=== PATIENT | female | born 1950 | race Caucasian/White ===

== ENCOUNTER 2018-06-11 14:34 | Outpatient (CLI) | payer OTHER, MEDICARE | END 2018-06-11 14:35 | disposition critical access hospital (66) | LOC: EMS 14:34 | PROVIDERS: ATTEND Surgery | DX: M54.5 Low back pain (principal); V89.2XXA Person injured in unspecified motor-vehicle accident, traffic, initial encounter; Y92.413 State road as the place of occurrence of the external cause | CPT/HCPCS: A0425; A0427 ==

== ENCOUNTER 2018-06-11 14:42 | Emergency (ER) | payer OTHER, MEDICARE ==
[2018-06-11] MEDS ORDERED: ONDANSETRON 4 MG/2 ML VIAL IVP STA (15:05)
[2018-06-11] MEDS ORDERED: MORPHINE 2 MG/ML CARPUJECT IVP STA (15:05)
[2018-06-11 15:12] LABS: BASOPHILS # (AUTO) 0.2 10^3/uL (0.0-0.1); BASOPHILS % (AUTO) 2.5 %; EOSINOPHILS # (AUTO) 0.3 10^3/uL (0.0-0.7); EOSINOPHILS % (AUTO) 4.2 %; HGB - HEMOGLOBIN 13.1 g/dL (12.0-16.0); LYMPHOCYTES # (AUTO) 2.9 10^3/uL (1.5-3.5); MEAN CORPUSCULAR HEMOGLOBIN 30.3 pg (27.0-31.0); MEAN CORPUSCULAR HGB CONC 34.1 g/dL (32.0-36.0); MEAN CORPUSCULAR VOLUME 88.8 fL (81.0-99.0); MEAN PLATELET VOLUME 8.1 fL (7.9-10.8); MONOCYTES # (AUTO) 0.6 10^3/uL (0.0-1.0); MONOCYTES % (AUTO) 7.9 %; NEUTROPHILS # (AUTO) 3.4 10^3/uL (1.5-6.6); NEUTROPHILS % (AUTO) 46.4 %; PLT - PLATELET COUNT 419 10^3/uL (130-450); RED BLOOD COUNT 4.32 10^6/uL (4.20-5.40); RED CELL DISTRIBUTION WIDTH 12.7 % (12.0-15.0); WHITE BLOOD COUNT 7.4 x10^3/uL (4.8-10.8)
[2018-06-11 15:22] LABS: ALBUMIN 4.4 g/dL (3.2-5.5); ALBUMIN/GLOBULIN RATIO 1.6 (1.0-2.2); BILIRUBIN,TOTAL 0.7 mg/dL (0.2-1.0); CALCIUM 9.4 mg/dL (8.5-10.3); CREATININE 0.6 mg/dL (0.4-1.0); TOTAL PROTEIN 7.1 g/dL (6.7-8.2)
[2018-06-11] MEDS ORDERED: IOVERSOL 320 100 ML VIAL IVP ONE ×2 (15:35→16:37)
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
[2018-06-11] MEDS ORDERED: oxyCODONE 5 MG TABLET PO STA ×2 (17:03→18:33)
[2018-06-11] MEDS ORDERED: LIDOCAINE PATCH 5% TOP STA (17:03)
[2018-06-11 18:14] VITALS: BP 128/71
[2018-06-11 18:25] LABS: BILIRUBIN,URINE NEGATIVE (NEGATIVE); GLUCOSE, URINE (UA) NEGATIVE (NEGATIVE); KETONES,URINE (UA) NEGATIVE (NEGATIVE); LEUKOCYTE ESTERASE, URINE NEGATIVE (NEGATIVE); NITRITE,URINE NEGATIVE (NEGATIVE); OCCULT BLOOD,URINE NEGATIVE (NEGATIVE); PH,URINE 8.5 PH (5.0-7.5); PROTEIN,URINE NEGATIVE (NEGATIVE); UROBILINOGEN,URINE 0.2 (NORMAL) E.U./dL (NORMAL)
[2018-06-11 18:32] LABS: CLARITY,URINE CLEAR (CLEAR)
[2018-06-11] MEDS ORDERED: CYCLOBENZAPRINE 10 MG TABLET PO STA (18:33)
== END 2018-06-11 19:15 | disposition home or self-care (01) ==
LOC: EDUNIT# → ED 14:42
DX: S39.012A Strain of muscle, fascia and tendon of lower back, initial encounter (principal); R20.0 Anesthesia of skin; M54.2 Cervicalgia; R07.9 Chest pain, unspecified; R10.9 Unspecified abdominal pain; R51 Headache; R40.2412 Glasgow coma scale score 13-15, at arrival to emergency department; V43.52XA Car driver injured in collision with other type car in traffic accident, initial encounter
CPT/HCPCS: 36415; 70450; 71275; 72125; 74177; 80053; 81003; 83690; 84484; 85025; 93005; 96374; 96375; 99284; A9270; Q9967; 81001; 87086

== ENCOUNTER 2018-06-13 17:54 | Emergency (ER) | payer OTHER, MEDICARE ==
[2018-06-13 18:05] VITALS: BP 109/48
[2018-06-13] MEDS ORDERED: NAPROXEN 250 MG TABLET PO STA (18:53)
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
== END 2018-06-13 19:02 | disposition home or self-care (01) ==
LOC: ED 17:54 → UNDOADMIN 18:35 → MS2 18:35 → ED 19:02
DX: S03.40XA Sprain of jaw, unspecified side, initial encounter (principal); V49.9XXA Car occupant (driver) (passenger) injured in unspecified traffic accident, initial encounter; F17.200 Nicotine dependence, unspecified, uncomplicated
CPT/HCPCS: 99283; A9270

== ENCOUNTER 2019-01-31 13:49 | Outpatient (CLI) | payer MEDICARE ==
--- NOTE | 2019-02-01 08:34 | Mammography Report ---
Reason: ROUTINE MAMMO Procedure Date: 01/31/2019 Accession Number: [id number] / [id number] Procedure: [facility] - Screening Mammo w/Louis CPT Code: FULL RESULT: EXAM: Screening Mammo w/Louis DATE: 01/31/2019 2:16 PM CLINICAL HISTORY: Screening encounter. History of late childbearing. New baseline examination. TECHNIQUE: (B) - Bilateral CC and MLO views were obtained. COMPARISON: None PARENCHYMAL PATTERN: (D) - The breast(s) demonstrate(s) heterogeneously dense fibroglandular parenchyma. FINDINGS: There are typically benign vascular and typically benign coarse calcifications. There are no suspicious masses, calcifications, or areas of distortion. IMPRESSION: Benign findings. BI-RADS category 2. RECOMMENDATION: (ANNUAL) - Recommend routine annual screening mammography. BI-RADS CATEGORY: (2) - Benign Findings. STANDARD QUALIFYING STATEMENTS: 1. This examination was not reviewed with the aid of Computer-Aided Detection (CAD). 2. A negative or benign imaging report should not preclude biopsy if clinically suspicious findings are present. 3. Dense breasts may obscure an underlying neoplasm. 4. This examination was reviewed with the aid of 3D breast imaging (tomosynthesis).
== END 2019-01-31 13:50 | disposition home or self-care (01) ==
LOC: DI 13:49
PROVIDERS: ATTEND Internal Medicine
DX: Z12.31 Encounter for screening mammogram for malignant neoplasm of breast (principal)
CPT/HCPCS: 77063; 77067

== ENCOUNTER 2019-03-27 11:07 | Day surgery (SDC) | payer MEDICARE ==
[2019-03-27] MEDS ORDERED: LACTATED RINGERS 1,000 ML IV ONE (11:12)
[2019-03-27] MEDS ORDERED: LACTATED RINGERS 500 ML IV ONE (13:00)
[2019-03-27 13:49] VITALS: BP 119/66
== END 2019-03-27 11:08 | disposition home or self-care (01) ==
LOC: SDS 11:07
PROVIDERS: ATTEND Surgery
PROC: 0DJD8ZZ Inspection of Lower Intestinal Tract, Via Natural or Artificial Opening Endoscopic (ICD-10-PCS; principal; 2019-03-27 12:15)
DX: Z12.11 Encounter for screening for malignant neoplasm of colon (principal); K57.30 Diverticulosis of large intestine without perforation or abscess without bleeding; K64.8 Other hemorrhoids; Z87.891 Personal history of nicotine dependence
CPT/HCPCS: G0121; J7120

== ENCOUNTER 2019-06-28 16:28 | Outpatient (CLI) | payer MEDICARE ==
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
== END 2019-06-28 16:29 | disposition home or self-care (01) ==
LOC: DI 16:28
PROVIDERS: ATTEND Internal Medicine
DX: R26.89 Other abnormalities of gait and mobility (principal); R29.6 Repeated falls
CPT/HCPCS: 70450

== ENCOUNTER 2019-07-04 17:07 | Outpatient (CLI) | payer MEDICARE ==
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
== END 2019-07-04 17:08 | disposition home or self-care (01) ==
LOC: DI 17:07
PROVIDERS: ATTEND Internal Medicine
DX: M17.11 Unilateral primary osteoarthritis, right knee (principal); M85.861 Other specified disorders of bone density and structure, right lower leg

== ENCOUNTER 2019-11-14 13:26 | Outpatient (CLI) | payer MEDICARE ==
--- NOTE | 2019-11-14 14:29 | Ultrasound Report ---
Reason: RT LEG PAIN Procedure Date: 11/14/2019 Accession Number: [id number] / [id number] Procedure: US - Duplex Ext Veins Right CPT Code: Final Report FULL RESULT: PROCEDURE: Duplex Ext Veins Right INDICATIONS: RT LEG PAIN TECHNIQUE: Real-time imaging, as well as color and pulse Doppler interrogation, were performed of the lower extremity deep veins from the inguinal ligament to the popliteal fossa. COMPARISON: None. FINDINGS: The deep veins are normally compressible, and free of intraluminal thrombus. Color and pulse Doppler demonstrate normal phasic intraluminal flow. There is normal augmentation response to distal compression maneuver. IMPRESSION: Negative exam. No right lower extremity DVT. Exam results were conveyed to the ordering provider's shortly after completion of the exam by the vp purchasing. Reviewed by: Tyree Miller MD on 11/14/2019 2:27 PM PDT Approved by: Tyree Miller MD on 11/14/2019 2:27 PM PDT Station ID: [id number]
== END 2019-11-14 13:27 | disposition home or self-care (01) ==
LOC: DI 13:26
PROVIDERS: ATTEND Internal Medicine
DX: M79.604 Pain in right leg (principal)

== ENCOUNTER 2022-11-27 23:58 | Emergency (ER) | payer MEDICARE ==
[2022-11-28] MEDS ORDERED: ONDANSETRON 4 MG/2 ML VIAL IVP STA (00:17)
[2022-11-28] MEDS ORDERED: MORPHINE 2 MG/ML CARPUJECT IVP STA (00:17)
[2022-11-28] MEDS ORDERED: PROPOFOL 200 MG/20 ML VIAL IVP STA (00:18)
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
[2022-11-28] MEDS ORDERED: SODIUM CHLORIDE 0.9% 1,000 ML IV STA (00:55)
--- NOTE | 2022-11-28 01:47 | XRAY Report ---
PROCEDURE: Shoulder 3 View RT INDICATIONS: post reduction TECHNIQUE: 3 views of the shoulder were acquired. COMPARISON: X-ray shoulder 11/28/2022 FINDINGS: Bones: There is been interval reduction of previous anterior dislocation. There is good anatomic ali gnment. No visualized fracture.. No suspicious bony lesions. Visualized ribs appear intact. Soft tissues: No suspicious soft tissue calcifications. IMPRESSION: Anatomic alignment status post reduction. No visualized acute fracture. However, occult injury cannot be excluded. Recommend short interval imaging follow-up in 7-10 days as clinically indicated for add itional evaluation. Reviewed by: Nadine Aguirre MD on 11/28/2022 1:46 AM PDT Approved by: Nadine Aguirre MD on 11/28/2022 1:46 AM PDT Station ID: [id number]
[2022-11-28] MEDS ORDERED: HYDROcod/ACET 5/325 Prepack 4 PO STA (02:00)
--- NOTE | 2022-11-28 02:03 | ED Physician Documentation ---
PD HPI UPPER EXT INJURY - Stated complaint Stated Complaint: GLF - Chief complaint Chief Complaint: Ext Problem - History obtained from History obtained from: Patient, Family (Patient's son) - Additonal information Additional information: Patient is a 72-year-old female presenting for evaluation of right shoulder pain. Patient states that they are moving from her house and she tripped over a rug and fell with her arm out in front of her and it feels that her arm is out of place. She did not hit her head. She does not take a blood thinner. She denies any issue with anesthesia in the past. Her last meal was around 1:00. Per the son he states that she did have some alcohol this evening - Approximately 3 shots.Patient denies pain or injury elsewhere. Review of Systems Constitutional: denies: Fever Cardiac: denies: Chest pain / pressure Respiratory: denies: Dyspnea GI: denies: Abdominal Pain Musculoskeletal: reports: Extremity pain PD PAST MEDICAL HISTORY - Past Medical History Cardiovascular: None Respiratory: None Endocrine/Autoimmune: None GI: Hiatal hernia, Chronic constipation, Other : None HEENT: None Psych: Anxiety Musculoskeletal: None Derm: None - Past Surgical History Past Surgical History: Yes General: Hiatal hernia repair Ortho: Other /[employer] C[employer]: Hysterectomy - Present Medications Home Medications: Ambulatory Orders Medication Instructions Recorded Confirmed Cyclobenzaprine [Flexeril] 10 mg PO TID PRN #20 tablet 06/11/18 03/26/19 Naproxen 500 mg PO BID #20 tablet 06/13/18 03/27/19 HYDROcod/ACETAM 5/325 [Benoit 5/325] 1 tablet PO Q6H PRN #14 tablet 11/28/22 - Allergies Allergies/Adverse Reactions: Allergies Allergy/AdvReac Type Severity Reaction Status Date / Time diazepam [From Valium] Allergy Nausea Verified 03/27/19 11:19 - Social History Does the pt smoke?: Yes Smoking Status: Current every day smoker Does the pt drink ETOH?: Yes Does the pt have substance abuse?: No - Immunizations Immunizations are current?: Yes - POLST Patient has POLST: No PD ED PE NORMAL - General General: Alert and oriented X 3, No acute distress, Well developed/nourished - HEENT HEENT: Atraumatic, PERRL, EOMI, Moist mucous membranes, Pharynx benign - Neck Neck: Supple, no meningeal sign, No bony TTP, C-Spine cleared by NEXUS criteria - Cardiac Cardiac: RRR, Strong equal pulses - Respiratory Respiratory: No respiratory distress, Clear bilaterally - Abdomen Abdomen: Soft, Non tender - Derm Derm: Warm and dry - Extremities Extremities: Other (Deformity and tenderness to right shoulder, motor, sensation intact distally, strong radial pulse, full range of motion at right elbow) - Neuro Neuro: Alert and oriented X 3, No motor deficit, No sensory deficit, Normal speech Results - Vitals Vitals: Vital Signs - 24 hr 11/28/22 11/28/22 11/28/22 00:03 00:36 00:59 Temperature 36.5 C Heart Rate 84 76 95 Respiratory 22 21 20 Rate Blood Pressure 119/59 L 117/60 149/63 H O2 Saturation 99 100 100 If not protocol : Oxygen Flow, liters/minute 11/28/22 11/28/22 11/28/22 01:14 01:18 01:30 Temperature Heart Rate 86 78 78 Respiratory 20 15 18 Rate Blood Pressure 115/56 L 118/65 118/67 O2 Saturation 100 94 100 If not protocol 2 : Oxygen Flow, liters/minute 11/28/22 11/28/22 01:46 03:38 Temperature Heart Rate 75 79 Respiratory 17 15 Rate Blood Pressure 116/62 131/71 H O2 Saturation 100 95 If not protocol : Oxygen Flow, liters/minute Oxygen O2 Source Room air Procedures - Reduction Body part reduced: Right, Shoulder Fracture or dislocation: Dislocation Anesthesia: Other (Procedural sedation, propofol) Shoulder reduction technique: Traction - counter tract Reduction aftercare: Xray confirms reduction, Alignment improved, Sling, Patient tolerated well - Procedural sedation Sedation prep: Informed consent, Time out completed, Last meal (1 PM), PE performed, ASA 1 - healthy, IV O2 monitor, ET CO2 monitor, RT present Sedation Medications: propofol Mallampati classification: III Patient status during sedation: Drowsy, Vitals remained stable, Maintained airway, Recovered uneventfully Sedation recovery: Other (Required supplemental oxygen) Time in sedation (Minutes): 10 PD Medical Decision Making - ED course Complexity details: reviewed results, re-evaluated patient, d/w patient, d/w family ED course: Patient presenting for evaluation of right shoulder injury. Appears to have deformity on exam concerning for dislocation. No head injury. Does not take a blood thinner. X-ray which I reviewed demonstrates a anterior shoulder dislocation on the right. Patient was given IV morphine and consented for procedural sedation and reduction of her dislocation. She was given propofol and tolerated sedation as well as reduction. Reduction was confirmed as successful on repeat imaging. Patient did briefly require oxygen And was monitored in the emergency department until she was able to maintain room air sats. She returned to her preprocedural baseline. Son is present with her to give her a ride home. Patient is counseled on need for close follow-up with orthopedic surgery. She is advised on concerning symptoms to return for. Departure - Departure Disposition: Home, Self Care Clinical Impression: Dislocation of right shoulder joint Qualifiers: Encounter type: initial encounter Qualified Code(s): S43.004A - Unspecified dislocation of right shoulder joint, initial encounter Condition: Stable Instructions: ED Sedation Procedural Discon, ED Dislocation Shoulder Redu, ED Sling Prescriptions: HYDROcod/ACETAM 5/325 [Benoit 5/325] 1 tablet PO Q6H PRN #14 tablet PRN Reason: Pain Comments: Your right shoulder was dislocated and put back into place. We did give you a medicine called propofol to sedate you. Please do not drive yourself home. You also received pain medicine which could make you sleepy. We have placed your arm into a sling to help keep your shoulder in place. Please do not not do any reaching movements with your arm as this may cause your shoulder to come out of place again.I do recommend close follow-up with an orthopedic surgeon. [place] I would call Monday morning for a follow-up appointment. I have sent a prescription for pain medicine to [facility] in [place]. Return to the emergency department with any new or worsening symptoms. I am prescribing a short course of narcotic pain medication for you. These are potentially dangerous and addictive medications that should be used carefully. These medications may constipate you. Take an cdfd-grk-yiuiudv stool softener (docusate) twice daily with plenty of water while taking these medications. If you go 24 hours without a bowel movement, take krep-hsk-zzzzbra miralax, per package instructions. Do not drink or drive while taking these medications. If you received narcotic or sedating medications while in the emergency department, do not drive for 24 hours. Store this medication in a safe, secure place and out of reach of children. It is a violation of federal law to give or sell this medication to another person or to use in a manner other than prescribed. The ED will not refill narcotic prescriptions, including prescriptions lost or stolen. To dispose of unwanted medications: 1. [facility] [address] [facility] in [place] has a medication drop box. They accept prescription medications (in pill form) Monday through Monday 9:00 a.m. to 5:00 p.m. 2. The [facility] [employer] accepts prescription medications (in pill form only) for disposal year round. Call for more information. 3. Contact the [facility] for the next [facility] sponsored prescription drug collection event. , [phone], or [phone]; Note that many narcotic pain relievers also contain Tylenol/acetaminophen. Please ensure that your total dose of acetaminophen from all sources does not exceed 3 g (3000 mg) per day. Discharge Date/Time: 11/28/22 03:39
[2022-11-28 03:42] VITALS: BP 131/71
== END 2022-11-28 03:39 | disposition home or self-care (01) ==
LOC: ED 23:58
DX: S43.004A Unspecified dislocation of right shoulder joint, initial encounter (principal); W01.0XXA Fall on same level from slipping, tripping and stumbling without subsequent striking against object, initial encounter; F17.200 Nicotine dependence, unspecified, uncomplicated
CPT/HCPCS: 99152; 99283

== ENCOUNTER 2023-04-30 16:36 | Emergency (ER) | payer MEDICARE ==
[2023-04-30 16:47] VITALS: BP 146/82; O2SAT 100
[2023-04-30] MEDS ORDERED: LIDOCAINE-MPF 2% 5 ML VIAL SUBQ STA (16:47)
[2023-04-30] MEDS ORDERED: cephALEXin 250 MG CAPSULE PO STA (17:18)
--- NOTE | 2023-04-30 17:19 | XRAY Report ---
PROCEDURE: Finger(s) LT INDICATIONS: index finger distal amputation TECHNIQUE: AP hand, 2 views of the second finger(s) acquired. COMPARISON: None. FINDINGS: Bones: There has been amputation of the distal aspect of the distal phalanx of the second finger. No additional focal bony abnormality is seen. Age-appropriate degenerative changes are seen. Soft tissues: Associated soft tissue injury is seen. IMPRESSION: Amputation of the distal aspect of the distal phalanx of the second finger. Reviewed by: Noam Gunderson MD on 04/30/2023 4:18 PM [place] Approved by: Noam Gunderson MD on 04/30/2023 4:18 PM [facility] Station ID: [id number]
--- NOTE | 2023-04-30 17:22 | ED Physician Documentation ---
PD HPI UPPER EXT INJURY - Stated complaint Stated Complaint: LT HAND INJ - Chief complaint Chief Complaint: Trauma Ext - History obtained from History obtained from: Patient - History of Present Illness Location: Left, Finger (index) Type of injury: Crush Where injury occurred: Home Timing - onset: How many minutes ago (45) Pain level max: 6 Pain level now: 6 Improved by: Rest Worsened by: Moving, Palpating Associated symptoms: No: Weakness, Numbness, Tingling, Swelling Contributing factors: No: Anticoagulated Recently seen: Not recently seen - Additonal information Additional information: Patient is a 72-year-old female that was moving today, she is left-handed, and her left index finger became caught in between 2 objects. She states that the tip of her finger came off. Nothing makes it better or worse. Tetanus shot is up-to-date, last tetanus shot 2018. No numbness or tingling. Nothing makes it better or worse. Review of Systems Constitutional: denies: Fever, Chills GI: denies: Vomiting, Diarrhea PD PAST MEDICAL HISTORY - Past Medical History Past Medical History: Yes Cardiovascular: None Respiratory: None Endocrine/Autoimmune: None GI: Hiatal hernia, Chronic constipation, Other : None HEENT: None Psych: Anxiety Musculoskeletal: None Derm: None - Past Surgical History Past Surgical History: Yes General: Hiatal hernia repair Ortho: Other /[employer]: Hysterectomy - Present Medications Home Medications: Ambulatory Orders Medication Instructions Recorded Confirmed Cyclobenzaprine [Flexeril] 10 mg PO TID PRN #20 tablet 06/11/18 03/26/19 Naproxen 500 mg PO BID #20 tablet 06/13/18 03/27/19 HYDROcod/ACETAM 5/325 [[place] 5/325] 1 tablet PO Q6H PRN #14 tablet 11/28/22 HYDROcod/ACETAM 5/325 [[place] 5/325] 1 - 2 ea PO Q6H PRN #14 tablet 04/30/23 cephALEXin [Keflex] 500 mg PO Q6H #28 cap 04/30/23 - Allergies Allergies/Adverse Reactions: Allergies Allergy/AdvReac Type Severity Reaction Status Date / Time diazepam [From Valium] Allergy Nausea Verified 04/30/23 16:46 - Social History Does the pt smoke?: No Smoking Status: Never smoker Does the pt drink ETOH?: Yes Does the pt have substance abuse?: No - Immunizations Immunizations are current?: No - POLST Patient has POLST: No PD ED PE NORMAL - Vitals Vital signs reviewed: Yes - General General: Alert and oriented X 3, No acute distress - HEENT HEENT: Moist mucous membranes - Neck Neck: Supple, no meningeal sign - Cardiac Cardiac: RRR - Respiratory Respiratory: No respiratory distress, Clear bilaterally - Derm Derm: Warm and dry - Extremities Extremities: Other (L hand - Amputation at the distal tip. No visible exposed bone. Neurovascular intact. Nail was removed with the tip.) - Neuro Neuro: Alert and oriented X 3 - Psych Psych: Normal mood, Normal affect Results - Vitals Vitals: Vital Signs - 24 hr 04/30/23 16:41 Temperature 36.2 C L Heart Rate 104 H Respiratory 18 Rate Blood Pressure 146/82 H O2 Saturation 100 Oxygen O2 Source Room air - Rads (name of study) Left hand x-ray Relevant Findings:: Final report received, See rad report (Distal tip amputation left index finger) Procedures - Laceration (location) Left index finger Length in cm: 3 Wound type: Curved, Clean, Exposure of bone Neurovascular status: Sensory intact, Motor intact, Vascular intact Tendon involvement: Tendon intact Anesthesia: Lidocaine 1% (Digital block) Wound preparation: Irrigated copiously NS, Wound explored, To the base Skin layer closure: Nylon, Interrupted, Size #-0 - enter number (4) Other: Patient tolerated well, No complications, Neurovascular intact, Dressing applied, Tetanus UTD PD Medical Decision Making - ED course Complexity details: reviewed results, re-evaluated patient, considered differential, d/w patient ED course: Patient is a 72-year-old female with a left distal fingertip amputation. She did bring the tip of the finger with her. This was irrigated copiously with normal saline. I spoke with orthopedics on-call, Dr. Alonso. We discussed treatment options Including reattaching the tip versus rongeuring any potential exposed bone and oversewing the flap. The patient would like to try having the tip reattached to see if this will readhere. She understands that this may necrose and fall off. She also understands that this could need revision of the bone underneath the finger depending on how she is healing, but for now with the tip was reattached as a biological dressing and for possible readherence. The nail was fully ripped off from the patient's finger at the time of the initial injury. We will place her on Keflex and pain medication for home. Xeroform was applied after suturing the tip of the finger back in place. Gauze was then placed over the area and then a foam finger splint was used to cover the area to protect the tip of the finger. She will follow-up with orthopedics this week for a wound check. Warnings of infection and instructions on wound care given at bedside. Patient counseled regarding signs and symptoms for which I believe and urgent re-evaluation would be necessary. Patient with good understanding of and agreement to plan and is comfortable going home at this time This document was made in part using voice recognition software. While efforts are made to proofread this document, sound alike and grammatical errors may occur. Departure - Departure Disposition: 01 Home, Self Care Clinical Impression: Fingertip amputation Qualifiers: Encounter type: initial encounter Qualified Code(s): S68.119A - Complete traumatic metacarpophalangeal amputation of unspecified finger, initial encounter Condition: Good Instructions: ED Laceration Amputation Finger Tip Open Tx Follow-Up: [facility] [Provider Group] - Within 1 week Prescriptions: cephALEXin [Keflex] 500 mg PO Q6H #28 cap HYDROcod/ACETAM 5/325 [S[place]aton 5/325] 1 - 2 ea PO Q6H PRN #14 tablet PRN Reason: Pain Comments: I spoke with Dr. Alonso from orthopedics [facility]. Your fingertip was reapproximated and placed back onto the fingertip. As we discussed, this may re-adhere and heal well, there is also a chance that it may not re-adhere in which case it will turn black and fall off. It is important to follow-up with orthopedics to ensure proper wound healing, that there is no infection and that no further treatment is needed. Your prescriptions were sent to [facility] in [place]. Take all antibiotics until gone even if you are feeling better. Wear the splint until released by orthopedics. Do not change the yellow Xeroform gauze. You can change the outer gauze if it becomes soiled. I am prescribing a short course of narcotic pain medication for you. These are potentially dangerous and addictive medications that should be used carefully. These medications may constipate you. Take an qinu-zbq-pwcwnyb stool softener (docusate) twice daily with plenty of water while taking these medications. If you go 24 hours without a bowel movement, take saox-xir-fmpndxe miralax, per package instructions. Do not drink or drive while taking these medications. If you received narcotic or sedating medications while in the emergency dep artment, do not drive for 24 hours. Store this medication in a safe, secure place and out of reach of children. It is a violation of federal law to give or sell this medication to another person or to use in a manner other than prescribed. The ED will not refill narcotic prescriptions, including prescriptions lost or stolen. To dispose of unwanted medications: 1. [facility] at [address] in [place] has a medication drop box. They accept prescription medications (in pill form) Monday through Monday 9:00 a.m. to 5:00 p.m. 2. The [facility] Police Department accepts prescription medications (in pill form only) for disposal year round. Call for more information. 3. Contact the [facility] for the next [facility] sponsored prescription drug collection event. , [phone], or [phone]; Forms: PCP List Discharge Date/Time: 04/30/23 18:11
[2023-04-30] MEDS ORDERED: HYDROcod/ACET 5/325 Prepack 4 PO STA (17:47)
== END 2023-04-30 18:11 | disposition home or self-care (01) ==
LOC: ED 16:36
DX: S68.111A Complete traumatic metacarpophalangeal amputation of left index finger, initial encounter (principal); W23.0XXA Caught, crushed, jammed, or pinched between moving objects, initial encounter; Y92.009 Unspecified place in unspecified non-institutional (private) residence as the place of occurrence of the external cause
CPT/HCPCS: 12002; 73140; 99283; 99284; A9270

== ENCOUNTER 2023-11-10 16:19 | Outpatient (CLI) | payer MEDICARE | END 2023-11-10 23:59 | disposition critical access hospital (66) | LOC: EMS 16:19 | DX: S01.81XA Laceration without foreign body of other part of head, initial encounter (principal); S60.410A Abrasion of right index finger, initial encounter; M25.521 Pain in right elbow; M25.561 Pain in right knee; M54.2 Cervicalgia; W01.0XXA Fall on same level from slipping, tripping and stumbling without subsequent striking against object, initial encounter; Y93.01 Activity, walking, marching and hiking; Y92.524 Gas station as the place of occurrence of the external cause | CPT/HCPCS: A0425; A0429 ==

== ENCOUNTER 2023-11-10 16:52 | Emergency (ER) | payer MEDICARE ==
--- NOTE | 2023-11-10 16:59 | ED Physician Documentation ---
PD HPI Fall - Stated complaint Stated Complaint: GLF - History obtained from History obtained from: Patient, EMS - Additional information Additional information: This is a medically healthy 73-year-old woman who is up-to-date on tetanus who tripped over a concrete curb and fell forward hitting her face on the ground. There is no loss of consciousness. She has a laceration on the forehead. She complains of severe headache. Also right elbow and knee pain. She is quite anxious and started crying when I recommended closure of her facial laceration. She is allergic to Valium with a side effect of vomiting but says she can take lorazepam and alprazolam. PD PAST MEDICAL HISTORY - Past Medical History Cardiovascular: None Respiratory: None Endocrine/Autoimmune: None GI: Hiatal hernia, Chronic constipation, Other : None HEENT: None Psych: Anxiety Musculoskeletal: None Derm: None - Past Surgical History Past Surgical History: Yes General: Hiatal hernia repair Ortho: Other /[employer]ODUCTION: Hysterectomy - Present Medications Home Medications: Ambulatory Orders Medication Instructions Recorded Confirmed Cyclobenzaprine [Flexeril] 10 mg PO TID PRN #20 tablet 06/11/18 03/26/19 Naproxen 500 mg PO BID #20 tablet 06/13/18 03/27/19 HYDROcod/ACETAM 5/325 [Vermilion 5/325] 1 tablet PO Q6H PRN #14 tablet 11/28/22 HYDROcod/ACETAM 5/325 [Vermilion 5/325] 1 - 2 ea PO Q6H PRN #14 tablet 04/30/23 cephALEXin [Keflex] 500 mg PO Q6H #28 cap 04/30/23 HYDROcod/ACETAM 5/325 [Vermilion 5/325] 1 - 2 tab PO Q6H PRN #10 tablet 11/10/23 - Allergies Allergies/Adverse Reactions: Allergies Allergy/AdvReac Type Severity Reaction Status Date / Time diazepam [From Valium] Allergy Nausea Verified 11/10/23 17:22 - Social History Does the pt smoke?: No Smoking Status: Never smoker Does the pt drink ETOH?: Yes Does the pt have substance abuse?: No - Immunizations Immunizations are current?: No - POLST Patient has POLST: No PD ED PE NORMAL - Vitals Vital signs reviewed: Yes - General General: Alert and oriented X 3, Other (Anxious and crying, in a c-collar maintained pending imaging for concern of distracting injury) - HEENT HEENT: PERRL, EOMI, Pharynx benign, Other (Small laceration on the forehead but with active arterial bleeding. There is ecchymosis and swelling in the left periorbital area with tenderness but no evidence of entrapment.) - Neck Neck: No bony TTP (C-collar maintained pending imaging given her anxiety level and possible distracting injury from head injury.) - Cardiac Cardiac: RRR, No murmur - Respiratory Respiratory: No respiratory distress, Clear bilaterally - Abdomen Abdomen: Normal bowel sounds, Soft, Non tender - Derm Derm: Normal color, Warm and dry - Extremities Extremities: Other (Tenderness to the lateral epicondyle of the right elbow with difficulty with range of motion due to pain but has full range of motion. 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, No motor deficit, No sensory deficit, Normal speech Eye Opening: Spontaneous Motor: Obeys Commands Verbal: Oriented GCS Score: 15 - Psych Psych: Normal mood, Normal affect Results - Vitals Vitals: Vital Signs - 24 hr 11/10/23 17:16 Temperature 36.4 C L Heart Rate 107 H Respiratory 18 Rate Blood Pressure 156/93 H O2 Saturation 99 Oxygen O2 Source Room air - Labs Labs: Laboratory Tests 11/10/23 11/10/23 11/10/23 17:04 17:04 17:04 WBC 9.6 RBC 4.01 L Hgb 12.1 Hct 36.6 L MCV 91.3 MCH 30.2 MCHC 33.1 RDW 11.7 L Plt Count 323 MPV 10.2 Neut # (Auto) 4.8 Lymph # (Auto) 3.3 Rains # (Auto) 0.9 Eos # (Auto) 0.4 Baso # (Auto) 0.2 H Absolute Nucleated RBC 0.00 Nucleated RBC % 0.0 PT 11.0 INR 1.0 Sodium 136 Potassium 3.5 Chloride 104 Carbon Dioxide 24 Anion Gap 8.0 BUN 19 Creatinine 0.7 Estimated GFR (MDRD) 82 L Glucose 125 H Calcium 9.4 Total Bilirubin 0.5 AST 22 ALT 19 Alkaline Phosphatase 48 Total Protein 6.0 L Albumin 4.3 Globulin 1.7 L Albumin/Globulin Ratio 2.5 H - Rads (name of study) CT of the head, face, cervical spine with a left periorbital hematoma, clear head and cervical spine with only spondylitic changes. Relevant Findings:: Final report received, EMP independent interpretation of test X-rays of the right knee and right elbow showing arthritic changes in the knee but no trauma. Relevant Findings:: Final report received, EMP independent interpretation of test Procedures - Laceration (location) forehead Length in cm: 1 Wound type: Linear Wound preparation: Irrigated copiously NS Skin layer closure: Dermabond Other: Tetanus UTD PD Medical Decision Making - ED course ED course: 73-year-old woman presents after ground-level fall with predominantly facial in juries, clinically low pretest probability of facial fracture. She had a small laceration on the forehead that was closed with Dermabond. Relevant imaging was negative for more severe trauma. She was administered a small dose of hydromorphone and lorazepam in the emergency department with improvement in her symptoms she was offered a work note but plans to keep working despite her injuries. CBC, INR and CMP unremarkable save mild hyperglycemia likely due to stress reaction. Departure - Departure Disposition: 01 Home, Self Care Clinical Impression: Facial laceration Qualifiers: Encounter type: initial encounter Qualified Code(s): S01.81XA - Laceration without foreign body of other part of head, initial encounter Facial contusion Qualifiers: Encounter type: initial encounter Qualified Code(s): S00.83XA - Contusion of other part of head, initial encounter Head injury Qualifiers: Encounter type: initial encounter Qualified Code(s): S09.90XA - Unspecified injury of head, initial encounter Contusion of right elbow Qualifiers: Encounter type: initial encounter Qualified Code(s): S50.01XA - Contusion of right elbow, initial encounter Contusion of right knee Qualifiers: Encounter type: initial encounter Qualified Code(s): S80.01XA - Contusion of right knee, initial encounter Condition: Good Record reviewed to determine appropriate education?: Yes Instructions: ED Head Injury Closed, ED Laceration Facial Skin Glue Prescriptions: HYDROcod/ACETAM 5/325 [Vermilion 5/325] 1 - 2 tab PO Q6H PRN #10 tablet PRN Reason: Pain Comments: I sent your prescription electronically to the [facility] in [place]. If pain is not bad or if you need to drive you can take Tylenol and/or ibuprofen. Follow-up with your doctor in a week for recheck. Return for new or worsening symptoms. I am prescribing a short course of narcotic pain medication for you. These are potentially dangerous and addictive medications that should be used carefully. These medications may constipate you. Take an lmqs-vcx-rmrepxe stool softener (docusate) twice daily with plenty of water while taking these medications. If you go 24 hours without a bowel movement, take qeih-cuu-dloiged miralax, per package instructions. Do not drink or drive while taking these medications. If you received narcotic or sedating medications while in the emergency department, do not drive for 24 hours. Store this medication in a safe, secure place and out of reach of children. It is a violation of federal law to give or sell this medication to another person or to use in a manner other than prescribed. The ED will not refill narcotic prescriptions, including prescriptions lost or stolen. To dispose of unwanted medications: 1. [facility] a [facility] box for medication in pill form only (no liquids) 8:00 am to 4:30 p.m. Monday-Monday in the lobby of the [facility], [address] [place] [address]. Empty pills into ziplock bag before disposal. Call [phone] for information. 2.[employer] is a free service available to all [facility] residents. Go to [email or web address] Note that many narcotic pain relievers also contain Tylenol/acetaminophen. Please ensure that your total dose of acetaminophen from all sources does not exceed 3 g (3000 mg) per day.
[2023-11-10 17:10] LABS: BASOPHILS # (AUTO) 0.2 10^3/uL (0.0-0.1); BASOPHILS % (AUTO) 1.6 %; EOSINOPHILS # (AUTO) 0.4 10^3/uL (0.0-0.7); EOSINOPHILS % (AUTO) 4.5 %; HCT - HEMATOCRIT 36.6 % (37.0-47.0); HGB - HEMOGLOBIN 12.1 g/dL (12.0-16.0); LYMPHOCYTES # (AUTO) 3.3 10^3/uL (1.5-3.5); LYMPHOCYTES % (AUTO) 34.1 %; MEAN CORPUSCULAR HEMOGLOBIN 30.2 pg (27.0-31.0); MEAN CORPUSCULAR HGB CONC 33.1 g/dL (32.0-36.0); MEAN CORPUSCULAR VOLUME 91.3 fL (81.0-99.0); MEAN PLATELET VOLUME 10.2 fL (7.9-10.8); MONOCYTES # (AUTO) 0.9 10^3/uL (0.0-1.0); MONOCYTES % (AUTO) 9.4 %; NEUTROPHILS # (AUTO) 4.8 10^3/uL (1.5-6.6); NEUTROPHILS % (AUTO) 50.2 %; PLT - PLATELET COUNT 323 10^3/uL (130-450); RED BLOOD COUNT 4.01 10^6/uL (4.20-5.40); RED CELL DISTRIBUTION WIDTH 11.7 % (12.0-15.0); WHITE BLOOD COUNT 9.6 x10^3/uL (4.8-10.8)
[2023-11-10 17:27] LABS: ALBUMIN 4.3 g/dL (3.2-5.5); ALBUMIN/GLOBULIN RATIO 2.5 (1.0-2.2); BILIRUBIN,TOTAL 0.5 mg/dL (0.2-1.0); CALCIUM 9.4 mg/dL (8.5-10.3); CREATININE 0.7 mg/dL (0.6-1.3); POTASSIUM 3.5 mmol/L (3.5-4.5)
[2023-11-10] MEDS: BUFFERED LIDOCAINE 10 ML SYRINGE SUBQ STA (17:57)
[2023-11-10] MEDS: HYDROmorphone 1 MG/ML CARPUJECT IVP STA (17:58)
[2023-11-10] MEDS: LORazepam 2 MG/ML VIAL IVP STA (17:58)
--- NOTE | 2023-11-10 18:07 | CT Report ---
PROCEDURE: Cervical Spine WO INDICATIONS: head inj TECHNIQUE: Noncontrast 3 mm thick sections acquired from the skull base to the T4 level. Sagittal and coronal r eformats were then constructed. For radiation dose reduction, the following was used: automated exp osure control, adjustment of mA and/or kV according to patient size. COMPARISON: None. FINDINGS: Image quality: Excellent. Bones: No fractures or dislocations. Visualized superior ribs are intact. Severe cervical spondylo sis. Multilevel disc height loss. Trace retrolisthesis of C4 and C5, C5 on C6, and C6 on C7. Multilev el facet arthropathy. Disc bulge with canal stenosis at C5-C6. Multilevel bony foraminal narrowing. Soft tissues: Prevertebral soft tissues are normal in thickness. No paravertebral hematomas. No ap ical pneumothoraces. IMPRESSION: 1. No acute cervical fracture or dislocation. 2. Severe cervical spondylosis. Reviewed by: Devante Sims MD on 11/10/2023 6:05 PM PDT Approved by: Devante Sims MD on 11/10/2023 6:05 PM PDT Station ID: [id number]
--- NOTE | 2023-11-10 18:08 | CT Report ---
PROCEDURE: Head WO INDICATIONS: head inj TECHNIQUE: Noncontrast 4.5 mm thick angled axial sections acquired from the foramen magnum to the vertex. For r adiation dose reduction, the following was used: automated exposure control, adjustment of mA and/or kV according to patient size. COMPARISON: 06/28/2019. FINDINGS: Image quality: Excellent. CSF spaces: Basal cisterns are patent. No extra-axial fluid collections. Ventricles are normal in size and shape. Brain: No midline shift. No intracranial masses or hemorrhage. Pedraza-white matter interface is norm al. Skull and face: Superficial hematoma, left forehead Calvarium and visualized facial bones are intact , without suspicious lesions. Sinuses: Visualized sinuses and mastoids are clear. IMPRESSION: No acute intracranial pathology. Reviewed by: Devante Sims MD on 11/10/2023 6:07 PM PDT Approved by: Devante Sims MD on 11/10/2023 6:07 PM PDT Station ID: [id number]
--- NOTE | 2023-11-10 18:11 | CT Report ---
PROCEDURE: Maxillofacial WO INDICATIONS: face inj TECHNIQUE: Noncontrast 1.5 mm thick axial images acquired from the mandible through the frontal sinuses, with co neftaly and sagittal reformatting. For radiation dose reduction, the following was used: automated ex posure control, adjustment of mA and/or kV according to patient size. COMPARISON: None. FINDINGS: Image quality: Excellent. Bones and teeth: Orbital stanford are intact. Sinus stanford show no fracture or deformity. Nasal bones and septum are intact. Visualized portions of the mandible demonstrate no fractures or subluxation. Zygomatic arches are intact. Pterygoid plates are intact. Visualized portions of the skull base an d auditory canals are intact. Sinuses: Paranasal sinuses are aerated, without fluid levels, mucosal thickening, or mucoceles. Mas toid air cells are aerated. Soft tissues: Superficial hematoma, left periorbital region and left forehead . Left globe intact. No enlarged lymph nodes. No soft tissue lacerations or debris. Vascular: Visualized vascular structures appear normal in the absence of contrast. Bony vascular fo ramina and canals are intact. IMPRESSION: 1. Left periorbital hematoma. Intact globe. 2. No acute facial bone fracture or mandibular fracture. Reviewed by: Devante Sims MD on 11/10/2023 6:09 PM PDT Approved by: Devante Sims MD on 11/10/2023 6:09 PM PDT Station ID: [id number]
--- NOTE | 2023-11-10 18:17 | XRAY Report ---
PROCEDURE: Elbow 3+V RT INDICATIONS: elbow inj TECHNIQUE: 3 views of the elbow were acquired. COMPARISON: None. FINDINGS: Bones: No fractures or dislocations. No suspicious bony lesions. Deformity from remote healed shaft fracture of the humerus Soft tissues: No effusion. No suspicious soft tissue calcifications or masses. IMPRESSION: No acute bony abnormality or significant joint effusion. Reviewed by: Devante Sims MD on 11/10/2023 6:15 PM PDT Approved by: Devante Sims MD on 11/10/2023 6:15 PM PDT Station ID: [id number]
--- NOTE | 2023-11-10 18:17 | XRAY Report ---
PROCEDURE: Knee 4+V RT INDICATIONS: knee inj TECHNIQUE: 4 views of the knee(s) were acquired. COMPARISON: None. FINDINGS: Bones: No fractures or dislocations. Tricompartment degenerative arthritis. No suspicious bony lesio ns. Soft tissues: No knee joint effusion. No suspicious soft tissue calcifications or masses. IMPRESSION: No acute bony abnormality. Degenerative arthritis. Comment: Continue to suspect acute fracture, consider CT knee. Reviewed by: Devante Sims MD on 11/10/2023 6:16 PM PDT Approved by: Devante Sims MD on 11/10/2023 6:16 PM PDT Station ID: [id number]
[2023-11-10 18:59] VITALS: BP 129/84; O2SAT 98
== END 2023-11-10 19:00 | disposition home or self-care (01) ==
LOC: EDUNIT# → ED 16:52
DX: S01.81XA Laceration without foreign body of other part of head, initial encounter (principal); S00.83XA Contusion of other part of head, initial encounter; S09.90XA Unspecified injury of head, initial encounter; S50.01XA Contusion of right elbow, initial encounter; S80.01XA Contusion of right knee, initial encounter; W01.198A Fall on same level from slipping, tripping and stumbling with subsequent striking against other object, initial encounter; Y93.89 Activity, other specified; Y92.481 Parking lot as the place of occurrence of the external cause
CPT/HCPCS: 12001; 36415; 70450; 70486; 72125; 73080; 73564; 80053; 85025; 85610; 96374; 99284; 99285; J1170; J2060